=== PATIENT | female | born 1960 | race African-American/Black ===

== ENCOUNTER 2017-06-18 12:20 | Emergency (ER) | payer MEDICAID, OTHER ==
[~2017-06-18] VITALS: Ht 167.6 cm; Wt 104.3 kg
[~2017-06-18 12:20] MED LIST: HYDR25TA32; LISI-420 PO
[2017-06-18 12:25] VITALS: BP 143/93
--- NOTE | 2017-06-18 12:28 | NUR ---
to lobby a/w bed, adonis benitez , vijay noted
--- NOTE | 2017-06-18 12:49 | NUR ---
PT RETURNED FROM RADIOLOGY VIA
--- NOTE | 2017-06-18 12:56 | NUR ---
56/F present to ER c/o left ankle pain, and swelling, s/p fall 2 days ago. CMS intact. pain 8/10 non radiating. patient states she took some otc motrin prior to er visit and states it did not alleviate the pain. SHANID notified of patient status.
[2017-06-18 13:43] VITALS: BP 143/93
== END 2017-06-18 13:45 | disposition home or self-care (01) ==
LOC: MED 12:20
DX: S93.402A Sprain of unspecified ligament of left ankle, initial encounter (principal); I10 Essential (primary) hypertension; Z79.899 Other long term (current) drug therapy; W01.0XXA Fall on same level from slipping, tripping and stumbling without subsequent striking against object, initial encounter; Y93.89 Activity, other specified; Y92.89 Other specified places as the place of occurrence of the external cause; Y99.8 Other external cause status
CPT/HCPCS: 73610; 99284

== ENCOUNTER 2020-04-19 13:18 | Emergency (ER) | payer OTHER ==
[~2020-04-19] VITALS: Ht 165.1 cm; Wt 99.8 kg
[~2020-04-19 13:18] MED LIST changes: -LISI-420 PO; +LISI20TA29 PO
[2020-04-19 13:20] VITALS: BP 138/75
--- NOTE | 2020-04-19 13:23 | NUR ---
Pt ambulated to ER bed 12.
--- NOTE | 2020-04-19 13:32 | NUR ---
Dr. Bello at pt bedside.
--- NOTE | 2020-04-19 13:33 | NUR ---
59 Y/O FEMALE C/O 08/01 CHEST PAIN DESCRIBED A PRESSURE/TIGHTNESS PAIN THAT RADIATES TO LEFT ARM/L SIDE OF FACE SINCE 1230 TODAY. PT STATES ALVARADO STARTED AT 0900 WITH BLURRY VISION. DENIES OTC MEDS. PT STATES SHE IS NAUSEOUS BUT DENIES VOMITING/ DIARRHEA/SOB. 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 PT IS A/O X4 WITH EVEN AND UNLABORED RESPIRATIONS. MED HX: HTN, GERD RX: LISINOPRIL, HYDROCHOLOROTHIAZIDE, NEXUM NKA
[2020-04-19] MEDS ORDERED: diphenhydrAMINE 50 MG/ML VIAL IVP ONE (13:35)
[2020-04-19] MEDS ORDERED: MAG SULF 2000 MG/WATER PREMIX 50 ML IV ONE (13:35)
[2020-04-19] MEDS ORDERED: PROCHLORPERAZINE 10 MG/2 ML VIAL IVP ONE (13:35)
--- NOTE | 2020-04-19 13:52 | NUR ---
LAB AT BEDSIDE
--- NOTE | 2020-04-19 13:55 | NUR ---
PER VIJI, STATES THAT HE WANTS MAGNESIUM MEDICATION OVER 1 HOUR. STATES HE DOES NOT WANT IT OVER 2 HOURS RECOMMENDED BY PHARMACY.
[2020-04-19 13:56] LABS: BASOPHILS # (AUTO) 0.1 K/uL (0.00-0.22); BASOPHILS % (AUTO) 0.8 % (0.0-2.0); EOSINOPHILS # (AUTO) 0.2 K/uL (0-0.4); EOSINOPHILS % (AUTO) 3.1 % (0.0-4.0); HEMATOCRIT 35.4 % (36-48); HEMOGLOBIN 11.4 g/dL (12.0-16.0); LYMPHOCYTES # (AUTO) 3.5 K/uL (2.5-16.5); LYMPHOCYTES % (AUTO) 49.8 % (20.5-51.1); MEAN CORPUSCULAR HEMOGLOBIN 26 pg (27-31); MEAN CORPUSCULAR HGB CONC 32 g/dL (33-37); MEAN CORPUSCULAR VOLUME 79.9 fL (80-94); MONOCYTES # (AUTO) 0.6 K/uL (0.8-1.0); MONOCYTES % (AUTO) 8.6 % (1.7-9.3); NEUTROPHILS # (AUTO) 2.7 K/uL (1.8-7.7); NEUTROPHILS % (AUTO) 37.7 % (42.2-75.2); PLATELET COUNT (AUTO) 407 K/uL (140-450); RED BLOOD CELL COUNT(AUTO) 4.43 MIL/uL (4.20-5.40); RED CELL DISTRIBUTION WIDTH 14.4 % (11.6-13.7)
--- NOTE | 2020-04-19 13:57 | NUR ---
RAD AT BEDSIDE
[2020-04-19 14:07] LABS: ANION GAP 10.3 (8-16); CARBON DIOXIDE 29.4 mmol/L (21-32); CREATININE 0.9 mg/dL (0.6-1.3); POTASSIUM 3.7 mmol/L (3.5-5.1)
--- NOTE | 2020-04-19 14:20 | NUR ---
Telepsych at pt bedside.
--- NOTE | 2020-04-19 14:46 | NUR ---
PT TAKEN TO CT VIA MARIO
[2020-04-19] MEDS ORDERED: ESOM20EC PO (14:50)
--- NOTE | 2020-04-19 15:13 | NUR ---
PT BACK FROM CT AND CONNECTED TO MONITORS
[2020-04-19] MEDS ORDERED: MORPHINE SULFATE 4 MG/ML SYR IVP ONE (15:25)
--- NOTE | 2020-04-19 15:32 | NUR ---
LUCAS SAMPLE COLLECTED AND GIVEN TO SYSTEM SAFETY ENGINEER
--- NOTE | 2020-04-19 16:41 | NUR ---
PT SLEEPING IN BED WITH EVEN AND UNLABORED RESPIRATIONS OBSERVED. VSS. BED IN LOWEST POSITION, BRAKES LOCKED, X1 SIDERAIL UP. WILL CONTINUE TO MONITOR
--- NOTE | 2020-04-19 17:53 | NUR ---
Gave report to MATTI Mays for pending admission to [facility], ER Dr. Ragland. ETA 15-20 minutes.
[2020-04-19 17:55] VITALS: BP 121/54
--- NOTE | 2020-04-19 17:55 | NUR ---
Patient to be transferred to [facility]. Is being transferred due to HIGHER LEVEL OF CARE. Receiving facility has accepting physician Dr. Ragland and available space. ER physician has signed transfer form. Patient or responsible republican has agreed to transfer and signed form. Patient belongings inventoried and will be sent with patient. Copy of nursing notes, lab reports, EKG, Physicians Orders and X-rays to be sent with patient. Report called to MATTI ELIAS at receiving facility. [facility] has been called for transfer. ETA is 15-20 minutes.
== END 2020-04-19 17:55 | disposition designated cancer center or children's hospital (05) ==
LOC: MED 13:18
DX: I63.9 Cerebral infarction, unspecified (principal); I10 Essential (primary) hypertension; Z20.822 Contact with and (suspected) exposure to COVID-19
CPT/HCPCS: 36415; 70450; 70496; 70498; 71045; 71275; 80048; 84484; 85025; 87426; 93005; 96374; 96375; 99285; G0480; J0780; J1200; J2270; J3475; Q9967

== ENCOUNTER 2022-12-31 15:50 | Emergency (ER) | payer OTHER ==
[~2022-12-31] VITALS: Ht 160 cm; Wt 100.2 kg
[~2022-12-31 15:50] MED LIST changes: +ESOM20EC PO
[2022-12-31 16:14] VITALS: BP 152/85; PULSE 61; RESP 18; TEMP 96.1; O2SAT 100
[2022-12-31] MEDS ORDERED: KETOROLAC 30 MG/ML VIAL IM ONE (16:30)
[2022-12-31] MEDS ORDERED: NAPR-54 PO (18:09)
[2022-12-31] MEDS ORDERED: LID5T TP (18:09)
== END 2022-12-31 18:46 | disposition home or self-care (01) ==
LOC: MED 15:50
DX: S83.92XA Sprain of unspecified site of left knee, initial encounter (principal); S83.91XA Sprain of unspecified site of right knee, initial encounter; K21.9 Gastro-esophageal reflux disease without esophagitis; I10 Essential (primary) hypertension; Z79.899 Other long term (current) drug therapy; Z79.1 Long term (current) use of non-steroidal anti-inflammatories (NSAID); W10.8XXA Fall (on) (from) other stairs and steps, initial encounter; Y92.89 Other specified places as the place of occurrence of the external cause; Y93.89 Activity, other specified; Y99.8 Other external cause status
CPT/HCPCS: 73501; 73562; 96372; 99284; J1885

== ENCOUNTER 2023-12-04 11:34 | Emergency (ER) | payer OTHER ==
[~2023-12-04] VITALS: Ht 157.5 cm; Wt 93.9 kg
[~2023-12-04 11:34] MED LIST changes: +LID5T TP; +NAPR-337 PO
[2023-12-04 11:38] VITALS: BP 123/82; PULSE 92; RESP 16; TEMP 97.1; O2SAT 100
[2023-12-04] MEDS: KETOROLAC 30 MG/ML VIAL IM ONE (12:28)
[2023-12-04] MEDS ORDERED: NAPR-1704 PO (13:57)
[2023-12-04 14:25] VITALS: BP 118/82; PULSE 87; RESP 16; TEMP 97.1; O2SAT 100
== END 2023-12-04 14:25 | disposition home or self-care (01) ==
LOC: MED 11:34
DX: S93.402A Sprain of unspecified ligament of left ankle, initial encounter (principal); M17.0 Bilateral primary osteoarthritis of knee; E11.9 Type 2 diabetes mellitus without complications; K21.9 Gastro-esophageal reflux disease without esophagitis; J45.909 Unspecified asthma, uncomplicated; Z90.49 Acquired absence of other specified parts of digestive tract; Z98.890 Other specified postprocedural states; Z79.899 Other long term (current) drug therapy; W01.0XXA Fall on same level from slipping, tripping and stumbling without subsequent striking against object, initial encounter; Y93.41 Activity, dancing; Y92.89 Other specified places as the place of occurrence of the external cause; Y99.8 Other external cause status
CPT/HCPCS: 73562; 73610; 82948; 96372; 99284; J1885